=== PATIENT | male | born 1995 | race Caucasian/White ===

== ENCOUNTER 2021-08-24 13:03 | Emergency (ER) | payer OTHER, SELFPAY ==
--- NOTE | ~2021-08-24 | XR_ITS ---
EXAMINATION: XR shoulder RT min 2V DATE: 08/24/2021 13:47 INDICATION: Right shoulder injury. TECHNIQUE: 4 views of right shoulder were obtained. COMPARISON: None. FINDINGS: Bone alignment is normal. There is a nondisplaced avulsion fracture of greater tuberosity o f proximal humerus. Joint spaces are normal. IMPRESSION: 1. Nondisplaced avulsion fracture of greater tuberosity of proximal humerus. Reviewed, dictated and finalized at location A. L EDITOR
--- NOTE | ~2021-08-24 | XR_ITS ---
EXAMINATION: XR elbow RT min 3V DATE: 08/24/2021 13:47 INDICATION: Right elbow injury. TECHNIQUE: 4 views of right elbow were obtained. COMPARISON: None. FINDINGS: Bone alignment is normal. No fracture. Joint spaces are well maintained. There is no elbow joint effusion. IMPRESSION: 1. Normal right elbow. Reviewed, dictated and finalized at location A. ALT PATCHER IMPRESSION: 1. Normal right elbow.
[2021-08-24 13:15] VITALS: BP 162/83; PULSE 78; RESP 16; TEMP 36.4; O2SAT 99
--- NOTE | 2021-08-24 14:25 | WC.ED.TRAUMA ---
HPI - Trauma General Chief Complaint: Extremity Injury, Upper Stated Complaint: INJURED R SHOULDER Source: patient and RN notes reviewed Mode of arrival: ambulatory History of Present Illness HPI narrative: This is a 26-year-old male who presented his self to urgent care with complaints of right shoulder and arm pain after throwing himself out of a golf cart. Patient notes that he gets sharp shooting pain in his right arm when he attempts to write it above his nipple line. He does have sensation pulses and full range of motion with pain. Imaging indicates a nondisplaced fracture of the proximal humerus. Patient will be placed in a sling and instructed to follow-up with orthopedic surgery he was given telephone numbers and names of orthopedic surgeons at [facility]. The patient denies SOB, CP, palpitation, extremity numbness, lightheadedness, dizziness, constipation, diarrhea, chills, or fever. MD complaint: injury and pain Related Data Allergies Allergy/AdvReac Type Severity Reaction Status Date / Time No Known Allergies Allergy Unverified 05/20/15 17:32 Review of Systems Review of Systems: A 14 organ system Review of Systems was performed and pertinent positives included in the HPI, otherwise remaining ROS is negative. Exam Narrative: GENERAL: This is a well-nourished, well-developed patient, in no apparent distress. HEAD: normocephalic, atraumatic. EYES: PERRL. Sclera clear/white. Vision is grossly intact. EARS: External ears normal, auditory canals clear and without drainage, TMs normal without perforation. Hearing grossly intact. NOSE: External nose normal with no obvious nasal discharge, nares without redness, no rhinorrhea. THROAT: Mucous membranes moist, posterior pharynx clear. NECK: Neck supple, non-tender without lymphadenopathy, masses or thyromegaly. CARDIOVASCULAR: Regular rate and rhythm without murmurs, gallops, or rubs. RESPIRATORY: Clear to auscultation. Breath sounds equal bilaterally. No wheezes, rales, or rhonchi. GASTROINTESTINAL: Abdomen soft, non-tender, nondistended. Bowel sounds are active. No hepato-splenomegaly, or palpable masses. No guarding. SKIN: warm, intact with no suspicious lesions or rash, good texture and turgor. NEURO: awake, alert, and oriented to person, place and time. There were no obvious focal neurologic abnormalities. Steady gait EXTREMITIES: Normal range of motion with pain to the left arm when attempting to raise above the nipple line. No edema. No calf tenderness. Negative Homans sign bilaterally. BACK: Nontender without deformity or crepitance. No flank tenderness. Course Course Emergency Course: Patient will be given Toponas along with Flexeril and instructed to follow with orthopedic surgery he was also discharged with a sling in place Vital Signs Vital signs: Vital Signs Temperature 97.6 F 08/24/21 13:15 Pulse Rate 78 08/24/21 13:15 Respiratory Rate 16 08/24/21 13:15 Blood Pressure 162/83 H 08/24/21 13:15 Pulse Oximetry 99 08/24/21 13:15 Temperature 97.6 F 08/24/21 13:15 Pulse Rate 78 08/24/21 13:15 Respiratory Rate 16 08/24/21 13:15 Blood Pressure 162/83 H 08/24/21 13:15 Pulse Oximetry 99 08/24/21 13:15 MDM - Trauma MDM Narrative Medical decision making narrative: Patient will need to follow-up with orthopedic surgeon for nondisplaced fracture of the proximal humerus Differential Diagnosis Differential diagnosis: Likely penetrating abdominal trauma and abusive head trauma Discharge Plan Discharge Clinical Impression: Fracture of humerus Qualifiers: Encounter type: initial encounter Humerus Location: proximal Fracture type: closed Fracture alignment: nondisplaced Laterality: right Patient Disposition: Home, Self-Care Condition: Stable Instructions: Antibiotic Form Additional Instructions: Follow-up with ortho or primary care physician in 1 week When do I need to call the doctor? Signs of wound infection. These inclu
== END 2021-08-24 14:31 | disposition home or self-care (01) ==
PROVIDERS: Emergency Provider Nurse Practitioner
DX: S42.201A Unspecified fracture of upper end of right humerus, initial encounter for closed fracture (principal); V86.35XA Unspecified occupant of 3- or 4- wheeled all-terrain vehicle (ATV) injured in traffic accident, initial encounter
CPT/HCPCS: 73030; 73080; 99204; A4565; G0463

== ENCOUNTER 2023-02-06 20:57 | Emergency (ER) | payer BC, SELFPAY ==
--- NOTE | ~2023-02-06 | XR_ITS ---
EXAMINATION: XR chest 2V Exam Date/Time: 02/06/2023 22:37 CDT HISTORY: cp Comparison: None available. RESULT: Lines, tubes, and devices: None. Lungs and pleura: Slightly low lung volumes, particularly in the lateral view, with crowding, otherw ise clear. Cardiomediastinal silhouette: Stable. Other: No acute osseous or upper abdominal finding. IMPRESSION: No acute cardiopulmonary process. Reviewed, dictated and finalized at location K.
--- NOTE | ~2023-02-06 | CT_ITS ---
EXAMINATION: CT abdomen pelvis w con DATE: 02/07/2023 00:25 INDICATION: Right lower chest pain. TECHNIQUE: Computed tomography (CT) of the abdomen and pelvis was performed with 100 mL Omnipaque 350 intravenous contrast. Automated exposure control and iterative reconstruction technique were employe d. The dose-length product was 1683.95 mGy-cm. COMPARISON: None. FINDINGS: The visualized portions of the lung bases demonstrate mild atelectasis. No pleural effusion . The heart size is normal. No pericardial effusion. There is diffuse hepatic steatosis. The gallblad ion, spleen, pancreas, adrenal glands, and right kidney are normal. There is a 9 mm cyst in left kidn ey. There are no dilated loops of bowel. The appendix is normal. There are no pathologically enlarged lymph nodes. There is no free intraperitoneal fluid. There is prominent fat in left inguinal canal t hat may be a hernia. There is mild chronic anterior wedging of multiple lower thoracic vertebral bodi es. IMPRESSION: 1. Diffuse hepatic steatosis. Reviewed, dictated and finalized at location A.
--- NOTE | 2023-02-06 21:03 | ECG_ITS ---
Measurements Intervals [place] Rate: 83 P: 22 MS: 147 QRS: -5 QRSD: 104 T: 45 QT: 382 QTc: 450 Interpretive Statements SINUS RHYTHM MODERATE VOLTAGE CRITERIA FOR LVH, CONSIDER NORMAL VARIANT [MEETS CRITERIA IN ONE OF: R(aVL), S(V1), R(V5), R(V5/V6)+S(V1)] NO PREVIOUS ECG AVAILABLE FOR COMPARISON Electronically Signed On 02-07-2023 15:15:54 CDT by Amber Díaz M.D.
[2023-02-06 21:05] VITALS: BP 149/88; PULSE 83; RESP 18; TEMP 36.7; O2SAT 98
[2023-02-06 22:14] LABS: Basophils Absolute Auto 0.1 K/mm3 (0.0-0.1); Basophils Percent Auto 0.8 % (0.2-1.2); Eosinophils Absolute Auto 0.2 K/mm3 (0-0.3); Eosinophils Percent Auto 2.5 % (0-4.4); Hematocrit 45.4 % (42.0-52.0); Hemoglobin 15.6 g/dL (14.0-18.0); Immature Granulocyte Absolute 0.05 K/mm3 (0.00-0.031); Immature Granulocyte Percent A 0.6 % (0-0.5); Lymphocytes Absolute Auto 2.78 K/mm3 (0.9-3.2); Lymphocytes Percent Auto 31.2 % (18.3-44.2); Mean Corpuscular HGB Conc 34.4 g/dl (32-36); Mean Corpuscular Hemoglobin 32.6 pg (26-34); Mean Platelet Volume 9.9 fl (7.4-10.4); Monocytes Absolute Auto 0.5 K/mm3 (0.1-0.6); Neutrophils Absolute Auto 5.3 K/mm3 (1.3-6.7); Neutrophils Percent Auto 58.9 % (45.5-73.1); Platelet Count Result 206 k/mm3 (150-375); Red Blood Count 4.78 M/mm3 (4.6-6.20); Red Cell Distribution Width 11.9 % (11.5-14.5); White Blood Count 8.9 K/mm3 (4.5-10.0)
[2023-02-06 22:25] LABS: Alanine Aminotransferase 100 U/L (6-50); Albumin Level 4.3 g/dL (3.5-5.1); Alkaline Phosphatase 68 U/L (38-126); Anion Gap 9 mmol/L (8-16); Aspartate Amino Transferase 80 U/L (17-59); Bilirubin,Total 0.5 mg/dL (0.2-1.3); Blood Urea Nitrogen 11 mg/dL (9-20); Calcium 9.3 mg/dL (8.4-10.2); Carbon Dioxide 28 mmol/L (22-30); Chloride 103 mmol/L (98-107); Estimated CRCL calculation 215 ml/min; Estimated Glomerular Filt Rate > 60; Glucose 109 mg/dL (65-110); Lipase 122 U/L (23-300); Potassium 3.9 mmol/L (3.4-5.0); Sodium 140 mmol/L (137-145)
[2023-02-06 22:33] LABS: Partial Thromboplastin Time 24.7 SECONDS (22.3-36.8); Prothrombin Time 12.4 Seconds (11.1-14.7)
[2023-02-06 22:34] LABS: Troponin I < 0.012 ng/mL (0.000-0.034)
[2023-02-06 23:05] VITALS: BP 145/85; PULSE 78; RESP 17; O2SAT 97
[2023-02-06] MEDS: ASPIRIN 81 MG CHEWABLE TABLET 324 MG PO (23:18)
--- NOTE | 2023-02-06 23:20 | ED.CHESTPAIN ---
HPI - Chest Pain General Chief Complaint: Chest Pain <ANDER Baker Last Filed: 02/07/23 02:13> Stated Complaint: chest pain <ANDER Baker Last Filed: 02/07/23 02:13> Time Seen by Provider: 02/06/23 23:10 <ANDER Baker Last Filed: 02/07/23 02:13> Source: patient <ANDER Baker Last Filed: 02/07/23 02:13> Mode of arrival: ambulatory <ANDER Baker Filed: 02/07/23 02:13> Limitations: no limitations <ANDER Baker Filed: 02/07/23 02:13> History of Present Illness HPI narrative: Patient is a 27 y/o male who presents to the ED with c/o right lower chest pain. Patient reports having pain in his right lower chest, intermittent likely, described as a stabbing, for the last 3 days. Pain is aggravated with certain movements, lifting his arms, coughing, taking deep breaths. He took ibuprofen for his pain on Sunday, but denied improvement. Denied feeling short of breath, just reporting mild pleuritic pain. Today while at work, patient felt pain in his right lower back, which prompted his presentation. He has not taken anything further for the pain today. He mentions having a cough last week which resolved on its own, otherwise denies any cold symptoms. Denies fever, nausea, vomiting, abdominal pain, lower extremity pain or swelling, numbness/tingling. Patient reports a history of Oxhag-Wivgvjcwe-Rclvl. He does not take any medication for this or see a twister in. Denies any other cardiac issues, denies history of blood clots. Denies history of hypertension, hyperlipidemia, diabetes. He is a smoker. <ANDER Baker Last Filed: 02/07/23 02:13> Related Data Allergies/Adverse Reactions: Allergies Allergy/AdvReac Type Severity Reaction Status Date / Time No Known Allergies Allergy Verified 02/07/23 07:37 <ANDER Baker Last Filed: 02/07/23 02:13> Review of Systems Review of Systems: CONSTITUTIONAL: Denies fever, chills, or sweats. ENT: Denies rhinorrhea, congestion, sore throat. CARDIOVASCULAR: See HPI. RESPIRATORY: See HPI. GASTROINTESTINAL: Denies abdominal pain, nausea, vomiting, or diarrhea. GENITOURINARY: Denies incontinence, dysuria or hematuria. SKIN: Denies rash or itching. MUSCULOSKELETAL: See HPI. NEUROLOGIC: See HPI. 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 <ANDER Baker Last Filed: 02/07/23 02:13> Surgical History Surgical History: Surgical History (System 02/07/23 @ 07:37 by Ru Piedra) No pertinent past surgical history <ANDER Baker Last Filed: 02/07/23 02:13> Social History Social History: Social History (System 02/07/23 @ 07:37 by Ru Piedra) Smoking status: Current every day smoker Tobacco type: cigarettes Alcohol intake: current Substance use: current Substance use type: marijuana Living arrangements: with family Gender identity (if verbalized by the patient): Male <Yee Yo PA-C - Last Filed: 02/07/23 02:13> Exam Narrative: GENERAL: Well appearing, morbidly obese, non-toxic, in no acute distress. HEAD: Normocephalic, atraumatic. NECK: Supple. No adenopathy, no masses. RESPIRATORY: Airway patent, respirations nonlabored. Clear to auscultation bilaterally, no rales, rhonchi, wheezing. CARDIOVASCULAR: Regular rate and rhythm without murmurs, rubs, or gallops. Peripheral pulses 2+ and equal bilaterally. ABDOMINAL: Soft, no significant tenderness throughout abdomen. Nondistended, no hepatosplenomegaly. Normoactive B
[2023-02-07 00:46] VITALS: PULSE 82; RESP 18; O2SAT 96
[2023-02-07 01:46] LABS: Troponin I < 0.012 ng/mL (0.000-0.034)
== END 2023-02-07 02:27 | disposition home or self-care (01) ==
PROVIDERS: Emergency Medicine; Emergency Provider Physician Assistant
DX: R07.89 Other chest pain (principal); S39.012A Strain of muscle, fascia and tendon of lower back, initial encounter; K76.0 Fatty (change of) liver, not elsewhere classified; F17.210 Nicotine dependence, cigarettes, uncomplicated; X58.XXXA Exposure to other specified factors, initial encounter
CPT/HCPCS: 36415; 71046; 74177; 80053; 83690; 84484; 85025; 85380; 85610; 85730; 93005; 99284; A9270; Q9967

== ENCOUNTER 2023-07-04 12:16 | Emergency (ER) | payer BC, SELFPAY ==
[2023-07-04] VITALS (8 sets, daily range): BP systolic 138–164; BP diastolic 83–104; PULSE 84–93; RESP 16–22; O2SAT 95–99
--- NOTE | ~2023-07-04 | XR_ITS ---
EXAMINATION: XR chest 2V DATE: 07/04/2023 12:58 INDICATION: Chest pain and shortness of breath TECHNIQUE: AP and lateral views of the chest are obtained. COMPARISON: 02/06/2023 FINDINGS: There are minimal airspace opacities of the left lung base. No pleural effusion or pneumoth orax. The cardiomediastinal silhouette is normal. There is mild thoracic spondylosis. IMPRESSION: 1. Left basilar airspace opacities, consistent with atelectasis versus pneumonia. Reviewed, dictated and finalized at location B. IMPRESSION: 1. Left basilar airspace opacities, consistent with atelectasis versus pneumoni a.
--- NOTE | 2023-07-04 12:27 | ECG_ITS ---
Measurements Intervals [place] Rate: 85 P: 48 ME: 166 QRS: 2 QRSD: 103 T: 30 QT: 387 QTc: 461 Interpretive Statements SINUS RHYTHM DELAYED PRECORDIAL R/S TRANSITION BORDERLINE ECG COMPARED TO ECG 02/06/2023 21:04:07 NO SIGNIFICANT CHANGES Electronically Signed On 07-04-2023 12:45:38 CDT by Kalin Belcher D.O.
[2023-07-04 12:56] LABS: Basophils Absolute Auto 0.1 K/mm3 (0.0-0.1); Basophils Percent Auto 1.1 % (0.2-1.2); Eosinophils Absolute Auto 0.1 K/mm3 (0-0.3); Eosinophils Percent Auto 1.4 % (0-4.4); Hematocrit 45.9 % (42.0-52.0); Hemoglobin 15.6 g/dL (14.0-18.0); Immature Granulocyte Absolute 0.06 K/mm3 (0.00-0.031); Immature Granulocyte Percent A 1.1 % (0-0.5); Lymphocytes Percent Auto 28.5 % (18.3-44.2); Mean Corpuscular Hemoglobin 32.5 pg (26-34); Mean Corpuscular Volume 95.6 fl (80-100); Mean Platelet Volume 9.7 fl (7.4-10.4); Monocytes Absolute Auto 0.5 K/mm3 (0.1-0.6); Monocytes Percent Auto 8.6 % (2.6-8.5); Neutrophils Absolute Auto 3.3 K/mm3 (1.3-6.7); Neutrophils Percent Auto 59.3 % (45.5-73.1); Platelet Count Result 171 k/mm3 (150-375); Red Cell Distribution Width 12.2 % (11.5-14.5); White Blood Count 5.6 K/mm3 (4.5-10.0)
[2023-07-04 13:06] LABS: Alanine Aminotransferase 110 U/L (6-50); Albumin Level 4.2 g/dL (3.5-5.1); Alkaline Phosphatase 65 U/L (38-126); Anion Gap 8 mmol/L (8-16); Aspartate Amino Transferase 134 U/L (17-59); Bilirubin,Total 0.7 mg/dL (0.2-1.3); Blood Urea Nitrogen 7 mg/dL (9-20); Calcium 8.2 mg/dL (8.4-10.2); Carbon Dioxide 28 mmol/L (22-30); Chloride 103 mmol/L (98-107); Estimated CRCL calculation 289 ml/min; Estimated Glomerular Filt Rate > 60; Glucose 110 mg/dL (65-110); Lipase 73 U/L (23-300); Potassium 3.8 mmol/L (3.4-5.0); Sodium 139 mmol/L (137-145)
[2023-07-04 13:07] LABS: Partial Thromboplastin Time 23.9 SECONDS (22.3-36.8)
[2023-07-04 13:17] LABS: Troponin I < 0.012 ng/mL (0.000-0.034)
--- NOTE | 2023-07-04 15:28 | ED.CHESTPAIN ---
HPI - Chest Pain General Chief Complaint: Chest Pain Stated Complaint: SOB,CP Time Seen by Provider: 07/04/23 12:36 History of Present Illness HPI narrative: Patient is a 28-year-old male who presents ER with chest pain shortness of breath. Reports he was walking at work when he developed central chest pain. Sharp/achy/burning/throbbing. He had no radiation. Cannot describe any exacerbating factors outside of walking to work. He is having shortness of breath with that which improved when he stopped walking. No fevers chills or sweats. No productive cough. Related Data Allergies Allergy/AdvReac Type Severity Reaction Status Date / Time No Known Allergies Allergy Verified 07/04/23 13:06 Review of Systems Review of Systems: All systems reviewed & are unremarkable except as noted in HPI and below Constitutional: Constitutional: Denies chills, Reports fatigue and Denies fever(s) ENT: Denies nasal congestion and Denies sore throat Cardiovascular: Cardiovascular: Reports chest pain, Denies rapid heart rate and Denies radiating jaw, neck or arm pain Respiratory: Respiratory: Denies cough, Reports dyspnea and Denies wheezing Gastrointestinal: Gastrointestinal: Reports no additional gastrointestinal complaints Genitourinary: Genitourinary: Reports no additional male genitourinary complaints Neurologic: Reports system reviewed and no additional complaints, except as documented [facility] Past Medical History Medical History (Updated 07/04/23 @ 17:47 by Edin Tsang MD) 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 HEAD: Normocephalic, atraumatic. ENT: Mucous membranes moist. NECK: Supple. CHEST: Clear to auscultation. No respiratory distress. HEART: Regular rate and rhythm. Normal peripheral pulses. ABDOMEN: Soft, nontender, nondistended. EXTREMITIES: Normal range of motion. No edema. SKIN: Warm, dry, no rash. NEURO: No focal deficits. Alert and oriented x3. PSYCH: Normal mood and affect. Course Course Emergency Course: Patient resting comfortably. No additional chest pain. Troponin negative x2. See heart score. Patient comfortable discharge home. Patient not felt to have pneumonia. Vital Signs Vital signs: Vital Signs Pulse Rate 92 07/04/23 12:23 Respiratory Rate 20 07/04/23 12:23 Blood Pressure 149/83 H 07/04/23 12:23 Pulse Oximetry 97 07/04/23 12:23 Oxygen Delivery Room Air 07/04/23 12:23 Pulse Rate 90 07/04/23 16:30 Respiratory Rate 18 07/04/23 16:30 Blood Pressure 156/103 H 07/04/23 16:30 Pulse Oximetry 99 07/04/23 16:30 Oxygen Delivery Room Air 07/04/23 12:23 MDM - Chest Pain Lab Data 07/04/23 12:47 07/04/23 12:47 Labs: Lab Results 07/04/23 07/04/23 Range/Units 12:47 15:31 WBC 5.6 (4.5-10.0) K/mm3 RBC 4.80 (4.6-6.20) M/mm3 Hgb 15.6 (14.0-18.0) g/dL Hct 45.9 (42.0-52.0) % MCV 95.6 (80-100) fl MCH 32.5 (26-34) pg MCHC 34.0 (32-36) g/dl RDW 12.2 (11.5-14.5) % Plt Count 171 (150-375) k/mm3 MPV 9.7 (7.4-10.4) fl Immature Gran % (Auto) 1.1 H (0-0.5) % Neut % (Auto) 59.3 (45.5-73.1) % Lymph % (Auto) 28.5 (18.3-44.2) % [place] % (Auto) 8.6 H (2.6-8.5) % Eos % (Auto) 1.4 (0-4.4) % Baso % (Auto) 1.1 (0.2-1.2) % Lymph # (Auto) 1.60 (0.9-3.2) K/mm3 [place] # (Auto) 0.5 (0.1-0.6) K/mm3 Eo
[2023-07-04 16:00] LABS: Troponin I < 0.012 ng/mL (0.000-0.034)
== END 2023-07-04 18:00 | disposition home or self-care (01) ==
PROVIDERS: Emergency Provider Emergency Medicine
DX: R07.9 Chest pain, unspecified (principal); I45.6 Pre-excitation syndrome; F17.210 Nicotine dependence, cigarettes, uncomplicated; F17.290 Nicotine dependence, other tobacco product, uncomplicated; R94.31 Abnormal electrocardiogram [ECG] [EKG]
CPT/HCPCS: 36415; 71046; 80053; 83690; 84484; 85025; 85610; 85730; 93005; 99284